=== PATIENT | male | born 1980 | race Caucasian/White ===

== ENCOUNTER 2016-11-07 00:01 | Emergency (ER) | payer OTHER ==
[~2016-11-07] VITALS: Ht 177.8 cm; Wt 102.0 kg
[2016-11-07 00:23] VITALS: TEMP 36.8; Ht 177.8 cm; Wt 102.0 kg
[2016-11-07] MEDS ORDERED: CYCL10TA6 PO (01:04)
[2016-11-07] MEDS ORDERED: PRED50TA PO (01:04)
[2016-11-07 01:11] VITALS: BP 153/97; PULSE 86; O2SAT 96
--- NOTE | 2016-11-07 06:08 | EMERGENCY ROOM VISIT NOTE ---
History First contact with patient: 00:37 Chief Complaint: SHOULDER PAIN Stated Complaint: RIGHT SHOULDER PAIN History of Present Illness The patient is a 36 year old male who presents to the Emergency Room with complaints of right shoulder pain for the past one day. The patient does not recall an injury or trauma. The patient has been drinking tonight and is obviously intoxicated. 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 He rates his discomfort a 7/10. Review of Systems More than 10 systems were reviewed and otherwise negative with the exception of history of present illness. Past Medical/Surgical History No chronic medical disease Family History No pertinent family history Social History Smoking Status: Current Every Day Smoker Alcohol Use: occasionally Marital Status: in relationship Housing Status: lives with significant other Occupation Status: employed Current/Historical Medications Scheduled Cyclobenzaprine Hcl (Flexeril), 10 MG PO TID Prednisone (Prednisone), 50 MG PO DAILY Allergies Coded Allergies: No Known Allergies (Unverified , 11/07/16) Physical Exam Vital Signs Date Time Temp Pulse Resp B/P (MAP) Pulse Ox O2 Delivery O2 Flow Rate FiO2 11/07/16 01:11 86 20 153/97 96 11/07/16 00:23 36.8 90 20 153/97 96 Room Air Pain Rating (0-10): 6.0 Physical Exam VITALS: Vitals are noted on the nurse's note and reviewed by myself. Vital signs stable. GENERAL: Well-developed, well-nourished, white male who appears intoxicated on examination. He is pleasant and cooperative. NECK: Supple without nuchal rigidity. No lymphadenopathy. No thyromegaly. Cervical spine is nontender. HEART: Regular rate and rhythm without murmurs gallops or rubs. LUNGS: Clear to auscultation bilaterally without wheezes, rales or rhonchi. No retractions or accessory muscle use. MUSCULOSKELETAL: Positive tenderness appreciated over the lateral deltoid and supraspinatus distribution of the right shoulder. Patient is unable to abduct secondary to discomfort. Neurovascular status is intact to the distal extremity. No clavicular tenderness. Negative empty can. NEURO: Patient was alert and oriented to person place and time. CN II through XII grossly intact. Medical Decision & Procedures ED Course Physical exam and history were performed. Nursing notes and EMR were reviewed. Patient appears to have right shoulder pain for the past one day. X-ray was obtained and reviewed by myself and my attending is showing no acute bony abnormality. 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 The patient may use over-the -counter analgesics. He will be given a prescription for prednisone and Flexeril. He is to follow with orthopedics for further care and management. He was otherwise invited back to the ER with any new, worsening, or concerning symptoms. The chart was completed utilizing [employer] Speech Voice Recognition Software. Grammatical errors, random word insertions, pronoun errors, and incomplete sentences are an occasional consequence of this system due to software limitations, ambient noise, and hardware issues. Any formal questions or concerns about the content, text, or information contained within the body of this dictation should be directly addressed to the provider for clarification. . Medical Decision Differential diagnosis includes, but is not limited to: Sprain, strain, fracture , dislocation, subluxation, contusion, tendinitis, rotator cuff injury, and others Impression Primary Impression: Right shoulder pain Departure Information Dispostion Home / Self-Care Condition GOOD Prescriptions Cyclobenzaprine Hcl (FLEXERIL) 10 Mg Tab 10 MG PO TID for 4 Days, #12 TAB Prov: Raffi Barlow PA-C 11/07/16 Prednisone (Prednisone) 50 Mg Tab 50 MG PO DAILY for 4 Days, #4 TAB Prov: Raffi Barlow PA-C 11/07/16 Referrals Pranay Scott D.O. Forms HOME CARE DOCUMENTATION FORM, Work Instructions, Additional Instructions: Patient was seen and evaluated today in the emergency department fo medical care. Return to work on 11/09/2016. IMPORTANT VISIT INFORMATION Patient Instructions My [facility] Additional Instructions You were seen and evaluated today on an emergency basis only. This is not a substitute for, or an effort to provide, complete comprehensive medical care. It is not possible to recognize and treat all injuries or illnesses in a single emergency department visit. For this reason it is recommended that you followup with Orthopedics, Dr. Scott's office, by telephone in the morning to arrange a follow-up visit next week. For baseline pain relief you may alternate ibuprofen and acetaminophen every 4 hours for pain control. Take 600 mg ibuprofen (Advil) and then 4 hours later take 1000 mg acetaminophen (Tylenol). Do not take more than 3000 mg acetaminophen in a single day. Take prednisone daily for the next 4 days Flexeril 1 tablet up to 3 times a day as needed for muscle spasms. No driving, working, or alcohol use with Flexeril. Wear your arm sling for comfort You are welcome to return to the emergency department anytime with new, worsening, or concerning symptoms. Work Instructions Additional Work Instructions: Patient was seen and evaluated today in the emergency department for medical care. Return to work on 11/09/2016.
--- NOTE | 2016-11-07 07:07 | DIAGNOSTIC IMAGING REPORT ---
RIGHT SHOULDER MIN 2 VIEWS ROUTINE CLINICAL HISTORY: pain Right COMPARISON: None. DISCUSSION: Moderate degenerative change right acromioclavicular joint. Small avulsion from the distal clavicle. This is well-corticated. Glenohumeral joint is unremarkable. There is no evidence for soft tissue swelling. IMPRESSION: Moderate degenerative change. No acute bony abnormality. Electronically signed by: Ryan Padron M.D. 11/07/2016 7:06 AM Dictated Date/Time: 11/07/2016 7:05 AM
== END 2016-11-07 01:12 | disposition home or self-care (01) ==
LOC: C.EDB 00:03 → C.EDC 01:12
DX: M25.511 Pain in right shoulder (principal); F17.210 Nicotine dependence, cigarettes, uncomplicated; F10.129 Alcohol abuse with intoxication, unspecified; Y90.9 Presence of alcohol in blood, level not specified

== ENCOUNTER → 2017-12-11 | Outpatient (CLI) | payer OTHER ==
[2017-12-11 13:45] LABS: BLOOD UREA NITROGEN 22 mg/dl (7-18); CALCIUM 8.5 mg/dl (8.5-10.1); CARBON DIOXIDE 27 mmol/L (21-32); CHOLESTEROL 156 mg/dl (0-200); GLUCOSE,FASTING 86 mg/dl (70-99); LDL CHOLESTEROL CALCULATED 79 mg/dl; POTASSIUM 3.9 mmol/L (3.5-5.1); SODIUM 140 mmol/L (136-145)
== END | disposition home or self-care (01) ==
LOC: C.LABPBG 07:36
PROVIDERS: ATTEND Physician Assistant
DX: Z00.00 Encounter for general adult medical examination without abnormal findings (principal)

== ENCOUNTER 2022-01-27 09:38 | Inpatient (IN) ==
[~2022-01-27 09:38] MED LIST: NALOXONE HCL 0.4 MG/1 ML VIAL/CARP ONE
[2022-01-27] MEDS ORDERED: SODIUM CHLORIDE 0.9% 1000ML 1,000 ML IV SCH (10:00)
--- NOTE | 2022-01-27 10:09 | Emergency Department Note ---
History of Present Illness General Chief complaint: Overdose (Accidental) Time Seen by Provider: 01/27/22 09:40 History of Present Illness 41-year-old male presents to the ED with a chief complaint of overdose. The patient presents to the hospital by ambulance. The patient, on arrival is unable to provide any information as he appears to be sedated. History surrounding the patient's arrival is as follows. EMS was called to a scene at a house where there was a 22-year-old male who was in cardiac arrest. EMS found this patient in a nearby room unresponsive with snoring respirations. EMS originally contacted me for refusal as they had given the patient nasal Narcan as well as IV Narcan and he awoke. He denied anything and refused care initially. He becomes somnolent during the investigation and EMS subsequently brought him in for evaluation. No additional information was provided by EMS. The patient is currently not able to converse but does respond to painful stimuli. He is breathing adequately. Home Medications Medication Instructions Recorded Confirmed Type Unobtainable 01/27/22 01/27/22 History Allergies Allergy/AdvReac Type Severity Reaction Status Date / Time No Known Allergies Allergy Unverified 01/27/22 10:05 Past Med/Surg History Social History Smoking Status: Unknown if ever smoked Review of Systems Unobtainable due to cognitive status Physical Exam Vital Signs Vital Signs - 24 hr 01/27/22 09:59 01/27/22 10:09 01/27/22 10:30 Temperature 35 C L Temperature Source Rectal Pulse Rate 76 Pulse Rate [Finger] 75 Pulse Rate from SpO2 Sensor Respiratory Rate 18 14 Respiratory Effort / Characteristics Respiratory Depth Respiratory Pattern Blood Pressure 140/91 Blood Pressure [Right Arm] 141/90 H Blood Pressure Mean 107 Blood Pressure Mean [Right Arm] 107 Blood Pressure Position [Right Arm] Pulse Oximetry 94 94 94 Oxygen Delivery Method Room Air Room Air Oxygen Flow Rate Sepsis Recent Fever Within 48 Hours No Sepsis New/Unexplained Change in Mental Status No Sepsis Action Taken by Nursing No Action Required 01/27/22 10:50 01/27/22 09:42 01/27/22 09:43 Temperature Temperature Source Pulse Rate 75 Pulse Rate [Finger] 73 Pulse Rate from SpO2 Sensor 75 Respiratory Rate 12 14 Respiratory Effort / Characteristics Respiratory Depth Respiratory Pattern Blood Pressure 140/91 Blood Pressure [Right Arm] 139/87 Blood Pressure Mean 107 Blood Pressure Mean [Right Arm] 104 Blood Pressure Position [Right Arm] Pulse Oximetry 92 94 Oxygen Delivery Method Room Air Oxygen Flow Rate Sepsis Recent Fever Within 48 Hours Sepsis New/Unexplained Change in Mental Status Sepsis Action Taken by Nursing 01/27/22 09:45 01/27/22 09:45 01/27/22 10:00 Temperature Temperature Source Pulse Rate 76 72 Pulse Rate [Finger] Pulse Rate from SpO2 Sensor Respiratory Rate 15 14 Respiratory Effort / Characteristics Respiratory Depth Respiratory Pattern Blood Pressure 149/95 H Blood Pressure [Right Arm] Blood Pressure Mean 113 Blood Pressure Mean [Right Arm] Blood Pressure Position [Right Arm] Pulse Oximetry Oxygen Delivery Method Oxygen Flow Rate Sepsis Recent Fever Within 48 Hours Sepsis New/Unexplained Change in Mental Status Sepsis Action Taken by Nursing 01/27/22 10:15 01/27/22 10:15 01/27/22 10:17 Temperature Temperature Source Pulse Rate 73 72 Pulse Rate [Finger] Pulse Rate from SpO2 Sensor 72 72 Respiratory Rate 16 12 Respiratory Effort / Characteristics Respiratory Depth Respiratory Pattern Blood Pressure 138/86 Blood Pressure [Right Arm] Blood Pressure Mean 103 Blood Pressure Mean [Right Arm] Blood Pressure Position [Right Arm] Pulse Oximetry 94 94 Oxygen Delivery Method Oxygen Flow Rate Sepsis Recent Fever Within 48 Hours Sepsis New/Unexplained Change in Mental Status Sepsis Action Taken by Nursing 01/27/22 10:28 01/27/22 10:30 01/27/22 10:30 Temperature Temperature Source Pulse Rate 77 Pulse Rate [Finger] Pulse Rate from SpO2 Sensor 75 Respiratory Rate 13 Respiratory Effort / Characteristics Respiratory Depth Respiratory Pattern Blood Pressure 139/95 141/90 H Blood Pressure [Right Arm] Blood Pressure Mean 109 107 Blood Pressure Mean [Right Arm] Blood Pressure Position [Right Arm] Pulse Oximetry 94 Oxygen Delivery Method Oxygen Flow Rate Sepsis Recent Fever Within 48 Hours Sepsis New/Unexplained Change in Mental Status Sepsis Action Taken by Nursing 01/27/22 10:45 01/27/22 10:45 01/27/22 11:00 Temperature Temperature Source Pulse Rate 74 Pulse Rate [Finger] Pulse Rate from SpO2 Sensor 76 Respiratory Rate 12 Respiratory Effort / Characteristics Respiratory Depth Respiratory Pattern Blood Pressure 139/87 145/87 H Blood Pressure [Right Arm] Blood Pressure Mean 104 106 Blood Pressure Mean [Right Arm] Blood Pressure Position [Right Arm] Pulse Oximetry 95 Oxygen Delivery Method Oxygen Flow Rate Sepsis Recent Fever Within 48 Hours Sepsis New/Unexplained Change in Mental Status Sepsis Action Taken by Nursing 01/27/22 11:00 01/27/22 11:15 01/27/22 11:15 Temperature Temperature Source Pulse Rate 73 73 Pulse Rate [Finger] Pulse Rate from SpO2 Sensor 73 72 Respiratory Rate 10 L 20 Respiratory Effort / Characteristics Respiratory Depth Respiratory Pattern Blood Pressure 144/86 H 144/86 H Blood Pressure [Right Arm] Blood Pressure Mean 105 105 Blood Pressure Mean [Right Arm] Blood Pressure Position [Right Arm] Pulse Oximetry 92 94 Oxygen Delivery Method Oxygen Flow Rate Sepsis Recent Fever Within 48 Hours Sepsis New/Unexplained Change in Mental Status Sepsis Action Taken by Nursing 01/27/22 11:30 01/27/22 11:30 01/27/22 11:45 Temperature Temperature Source Pulse Rate 66 Pulse Rate [Finger] Pulse Rate from SpO2 Sensor 67 Respiratory Rate 10 L Respiratory Effort / Characteristics Respiratory Depth Respiratory Pattern Blood Pressure 147/99 H 138/90 Blood Pressure [Right Arm] Blood Pressure Mean 115 106 Blood Pressure Mean [Right Arm] Blood Pressure Position [Right Arm] Pulse Oximetry 94 Oxygen Delivery Method Oxygen Flow Rate Sepsis Recent Fever Within 48 Hours Sepsis New/Unexplained Change in Mental Status Sepsis Action Taken by Nursing 01/27/22 11:45 01/27/22 13:03 01/27/22 13:03 Temperature Temperature Source Pulse Rate 70 Pulse Rate [Finger] 73 Pulse Rate from SpO2 Sensor 70 Respiratory Rate 11 L 26 H Respiratory Effort / Characteristics Respiratory Depth Respiratory Pattern Blood Pressure Blood Pressure [Right Arm] 138/87 Blood Pressure Mean Blood Pressure Mean [Right Arm] 104 Blood Pressure Position [Right Arm] Lying Pulse Oximetry 94 83 L 99 Oxygen Delivery Method Room Air Nasal Cannula Oxygen Flow Rate 5 Sepsis Recent Fever Within 48 Hours Sepsis New/Unexplained Change in Mental Status Sepsis Action Taken by Nursing 01/27/22 14:00 Temperature Temperature Source Pulse Rate Pulse Rate [Finger] 73 Pulse Rate from SpO2 Sensor Respiratory Rate 26 H Respiratory Effort / Characteristics Grunting Respiratory Depth Normal Respiratory Pattern Regular Blood Pressure Blood Pressure [Right Arm] 148/91 H Blood Pressure Mean Blood Pressure Mean [Right Arm] 110 Blood Pressure Position [Right Arm] Lying Pulse Oximetry 99 Oxygen Delivery Method Nasal Cannula Oxygen Flow Rate 5 Sepsis Recent Fever Within 48 Hours Sepsis New/Unexplained Change in Mental Status Sepsis Action Taken by Nursing CONSTITUTIONAL/VITAL SIGNS: Reviewed / noted above. GENERAL: Non-toxic in appearance. INTEGUMENTARY: Warm, dry, and [place]. Some track zhong noted on the patient's arms. HEAD: Normocephalic. EYES: without scleral icterus or trauma. The pupils are small. ENT/OROPHARYNX: clear and moist. No obvious trauma. LYMPHADENOPATHY/NECK: Is supple without lymphadenopathy or meningismus. RESPIRATORY: Clear to auscultation bilaterally. No increased work of breathing. CARDIOVASCULAR: Regular rate and rhythm. GI/ABDOMEN: Soft EXTREMITIES: Warm and well perfused. NEUROLOGICAL: Nonresponsive to verbal stimulus. He does respond to painful stimuli with movement of extremities and moaning. Does not follow commands. MUSCULOSKELETAL: Normally developed with good muscle tone. TRIAGE NURSING DOCUMENTATION REVIEWED. Course Administered Medications Discontinued Medications Sodium Chloride (Nss 1000ml) 1,000 mls @ 999 mls/hr IV .Q1H1M JUSTIN Stop: 01/27/22 11:00 Last Infusion: 01/27/22 11:06 Dose: 0 mls/hr Documented By: Admin: 01/27/22 10:13 Dose: 999 mls/hr Documented By: SONU Naloxone HCl (Naloxone Hcl 0.4 Mg/1 Ml Vial/Carp) Confirm Administered Dose 1.2 mg .ROUTE .STK-MED ONE Stop: 01/27/22 09:26 Last Admin: 01/27/22 14:28 Dose: Not Given Documented By: SIMRAN Naloxone HCl (Naloxone Hcl 0.4 Mg/1 Ml Vial/Carp) 0.4 mg IV NOW STA Stop: 01/27/22 11:10 Last Admin: 01/27/22 11:12 Dose: 0.4 mg Documented By: SIMRAN Medical Decision Making Differential Diagnosis Differential includes overdose on Tylenol/aspirin/ethanol, ethylene glycol, methanol, prescribed medications, not prescribe medications/street drugs, metabolic process, traumatic process. Medical Records Attestation: I reviewed the patient's medical records. Home Medications Current Medication List: was personally reviewed by me Laboratory Data Attestation: I reviewed the patient's lab results. Result diagrams: 01/27/22 09:40 01/27/22 09:40 Lab Results 01/27/22 01/27/22 01/27/22 Range/Units 09:40 09:40 09:40 WBC RBC Hgb Hct MCV MCH MCHC RDW Std Deviation RDW Coeff of Casey Plt Count MPV Immature Gran % (Auto) Neut % (Auto) Lymph % (Auto) [place] % (Auto) Eos % (Auto) Baso % (Auto) Neut # (Auto) Lymph # (Auto) [place] # (Auto) Eos # (Auto) Baso # (Auto) Immature Gran # (Auto) Absolute Nucleated RBC Nucleated RBC % (auto) Neutrophils % (Manual) Band Neutrophils % Lymphocytes % (Manual) Prolymphocyte % Reactive Lymphs % (Man) Monocytes % (Manual) Eosinophils % (Manual) Basophils % (Manual) Metamyelocytes % (Man) Myelocytes % (Man) Promyelocytes % (Man) Blast Cells % (Manual) Plasma Cell % (Manual) Other Cells % Nucleated RBC % Neutrophils # (Manual) Band Neutrophils # Total Absolute Neuts Lymphocytes # (Manual) Prolymphocyte # Reactive Lymphs # Total Abs Lymphocytes Monocytes # (Manual) Eosinophils # (Manual) Basophils # (Manual) Metamyelocytes # (Man) Myelocytes # (Manual) Promyelocytes # (Man) Blast Cells # (Man) Plasma Cell # (Manual) Other Cells # Nucleated RBCs # (Man) Hypersegmented Neuts Hyposegmented Neuts Hypogranular Neuts Large Granular Lymphs # Lrg Granular Lymphs Hairy Cells Smudge Cells Toxic Granulation Toxic Vacuolation Dohle Bodies Ariel Rods Platelet Estimate Hypogranular Platelets Clumped Platelets Giant Platelets Platelet Satelliting RBC Morphology Polychromasia Hypochromasia Poikilocytosis Basophilic Stippling Anisocytosis Microcytosis Macrocytosis Spherocytes Pappenheimer Bodies Sickle Cells Target Cells Tear Drop Cells Ovalocytes Stomatocytes [place] Bodies Echinocytes Acanthocytes (Spur) Rouleaux RBC Agglutinates Schistocytes Sezary Cell Sodium 140 (136-145) mmol/L Potassium 4.6 (3.5-5.1) mmol/L Chloride 105 (98-107) mmol/L Carbon Dioxide 27 (21-32) mmol/L Anion Gap 8 (3-11) BUN 24 H (6-23) mg/dl Creatinine 1.17 (0.6-1.4) mg/dl Est Cr Clr Drug Dosing 93.0 ml/min Est GFR ( Amer) 88.6 ml/min Est GFR (Non-Af Amer) 76.4 ml/min BUN/Creatinine Ratio 20.5 H (10-20) Glucose 116 H (70-99(Fasting)) mg/dl Calcium 9.0 (8.5-10.1) mg/dl Magnesium 2.1 (1.7-2.4) mg/dl Total Bilirubin 0.3 (0.2-1.0) mg/dl AST 28 (13-39) U/L ALT 26 (7-52) U/L Alkaline Phosphatase 53 (34-104) U/L Troponin I High Sens 23.9 H (0-20) pg/ml Total Protein 7.7 (6.0-8.3) gm/dl Albumin 4.0 (3.4-5.0) gm/dl Globulin 3.7 (2.5-4.0) gm/dl Albumin/Globulin Ratio 1.1 (0.9-2) Salicylates < 3.0 L (3.0-30) mg/dl Urine Opiates Screen (Neg) Ur Methadone, Qual (Neg) Acetaminophen < 3 L (10-30) ug/ml Urine Barbiturates (Neg) Ur Phencyclidine (PCP) (Neg) U Amphetamin/Meth Scrn (Neg) MDMA (Ecstasy) Screen (Neg) U Benzodiazepines Scrn (Neg) Ur Cocaine Metabolite (Neg) U Marijuana (THC) Screen (Neg) Ethyl Alcohol mg/dL < 10.0 (<10.0) mg/dl Blood Parasites ID 01/27/22 01/27/22 01/27/22 Range/Units 09:40 09:40 09:40 WBC Cancelled 14.99 H RBC Cancelled 5.02 Hgb Cancelled 15.4 Hct Cancelled 45.3 MCV Cancelled 90.2 MCH Cancelled 30.7 MCHC Cancelled 34.0 RDW Std Deviation Cancelled 43.5 RDW Coeff of Casey Cancelled 13.2 Plt Count Cancelled 243 MPV Cancelled 10.9 Immature Gran % (Auto) Cancelled 0.5 Neut % (Auto) Cancelled 77.4 Lymph % (Auto) Cancelled 9.1 [place] % (Auto) Cancelled 12.4 Eos % (Auto) Cancelled 0.3 Baso % (Auto) Cancelled 0.3 Neut # (Auto) Cancelled 11.59 H Lymph # (Auto) Cancelled 1.36 [place] # (Auto) Cancelled 1.86 H Eos # (Auto) Cancelled 0.05 Baso # (Auto) Cancelled 0.05 Immature Gran # (Auto) Cancelled 0.08 H Absolute Nucleated RBC Cancelled Nucleated RBC % (auto) Cancelled Neutrophils % (Manual) Cancelled Band Neutrophils % Cancelled Lymphocytes % (Manual) Cancelled Prolymphocyte % Cancelled Reactive Lymphs % (Man) Cancelled Monocytes % (Manual) Cancelled Eosinophils % (Manual) Cancelled Basophils % (Manual) Cancelled Metamyelocytes % (Man) Cancelled Myelocytes % (Man) Cancelled Promyelocytes % (Man) Cancelled Blast Cells % (Manual) Cancelled Plasma Cell % (Manual) Cancelled Other Cells % Cancelled Nucleated RBC % Cancelled Neutrophils # (Manual) Cancelled Band Neutrophils # Cancelled Total Absolute Neuts Cancelled Lymphocytes # (Manual) Cancelled Prolymphocyte # Cancelled Reactive Lymphs # Cancelled Total Abs Lymphocytes Cancelled Monocytes # (Manual) Cancelled Eosinophils # (Manual) Cancelled Basophils # (Manual) Cancelled Metamyelocytes # (Man) Cancelled Myelocytes # (Manual) Cancelled Promyelocytes # (Man) Cancelled Blast Cells # (Man) Cancelled Plasma Cell # (Manual) Cancelled Other Cells # Cancelled Nucleated RBCs # (Man) Cancelled Hypersegmented Neuts Cancelled Hyposegmented Neuts Cancelled Hypogranular Neuts Cancelled Large Granular Lymphs Cancelled # Lrg Granular Lymphs Cancelled Hairy Cells Cancelled Smudge Cells Cancelled Toxic Granulation Cancelled Toxic Vacuolation Cancelled Dohle Bodies Cancelled Ariel Rods Cancelled Platelet Estimate Cancelled Hypogranular Platelets Cancelled Clumped Platelets Cancelled Giant Platelets Cancelled Platelet Satelliting Cancelled RBC Morphology Cancelled Polychromasia Cancelled Hypochromasia Cancelled Poikilocytosis Cancelled Basophilic Stippling Cancelled Anisocytosis Cancelled Microcytosis Cancelled Macrocytosis Cancelled Spherocytes Cancelled Pappenheimer Bodies Cancelled Sickle Cells Cancelled Target Cells Cancelled Tear Drop Cells Cancelled Ovalocytes Cancelled Stomatocytes Cancelled Weiss[place] Bodies Cancelled Echinocytes Cancelled Acanthocytes (Spur) Cancelled Rouleaux Cancelled RBC Agglutinates Cancelled Schistocytes Cancelled Sezary Cell Cancelled Sodium (136-145) mmol/L Potassium (3.5-5.1) mmol/L Chloride (98-107) mmol/L Carbon Dioxide (21-32) mmol/L Anion Gap (3-11) BUN (6-23) mg/dl Creatinine (0.6-1.4) mg/dl Est Cr Clr Drug Dosing ml/min Est GFR ( Amer) ml/min Est GFR (Non-Af Amer) ml/min BUN/Creatinine Ratio (10-20) Glucose (70-99(Fasting)) mg/dl Calcium (8.5-10.1) mg/dl Magnesium (1.7-2.4) mg/dl Total Bilirubin (0.2-1.0) mg/dl AST (13-39) U/L ALT (7-52) U/L Alkaline Phosphatase (34-104) U/L Troponin I High Sens (0-20) pg/ml Total Protein (6.0-8.3) gm/dl Albumin (3.4-5.0) gm/dl Globulin (2.5-4.0) gm/dl Albumin/Globulin Ratio (0.9-2) Salicylates (3.0-30) mg/dl Urine Opiates Screen Neg (Neg) Ur Methadone, Qual Neg (Neg) Acetaminophen (10-30) ug/ml Urine Barbiturates Neg (Neg) Ur Phencyclidine (PCP) Neg (Neg) U Amphetamin/Meth Scrn Pos H (Neg) MDMA (Ecstasy) Screen Pos H (Neg) U Benzodiazepines Scrn Neg (Neg) Ur Cocaine Metabolite Pos H (Neg) U Marijuana (THC) Screen Pos H (Neg) Ethyl Alcohol mg/dL (<10.0) mg/dl Blood Parasites ID Cancelled Imaging Data Radiologist's Impression: Chest X-Ray 01/27/22 09:54 XR chest 1V portable HISTORY: 41 years-old Male od acute shortness of breath with drug overdose COMPARISON: Shoulder radiographs 11/04/2013 TECHNIQUE: Portable AP view of the chest FINDINGS: Lungs are hypoinflated with bronchovascular crowding. Cardiac silhouette is upper limits of normal in size. Mild subsegmental bibasilar densities. No pneumothorax, pleural effusion or overt pulmonary edema. Bones of the chest appear grossly intact. IMPRESSION: Hypoinflation with mild bibasilar opacities suggestive of atelectasis. ACT 112: Negative or not required by law. The above report was generated using voice recognition software. It may contain grammatical, syntax or spelling errors. Electronically signed by: Kenny Metzger M.D. 01/27/2022 10:[address] 01/27/22 09:56 CT head/brain wo con CLINICAL HISTORY: 41 years-old Male with od. Acute drug overdose with altered mental status TECHNIQUE: Multiple axial CT images of the head were obtained without contrast. A dose lowering technique was utilized adhering to the principles of ALARA. CT DOSE: 614.27 mGy.cm COMPARISON: None. FINDINGS: No acute intracranial hemorrhage, midline shift, intracranial mass, hydrocephalus, territorial ischemia or abnormal extra-axial collection. Prominent perivascular space within the inferior right lentiform nucleus/anterior commissure. The calvarium is intact. Age-indeterminate left-sided nasal bone fracture, likely chronic. Note is made of disconjugate gaze. The paranasal sinuses, mastoid air cells, and middle ear cavities are clear. IMPRESSION: 1. No acute intracranial abnormality. 2. Likely chronic left-sided nasal bone fracture. ACT 112: Negative or not required by law. The above report was generated using voice recognition software. It may contain grammatical, syntax or spelling errors. Electronically signed by: Kenny Metzger M.D. 01/27/2022 10:31 AM ECG Data Attestation: I personally reviewed and interpreted this ECG as follows: Additional Comments: 12 Lead EKG: Per my interpretation shows a normal sinus rhythm at a rate of 77. No ST elevation. No PVCs. Normal QTC. MDM Narrative 41-year-old male with likely overdose of narcotics. Patient had originally refused care after Narcan. He had snoring respirations and was unresponsive and after nasal and IV Narcan he awoke. He subsequently became less responsive and was transported to the ED for further evaluation and care. Unable to provide any history. When he was awake with EMS, he did not admit to any drugs. No additional information was available from EMS. There was a 22-year-old male on the same location that was in cardiac arrest, which was the original call for EMS to the site. The patient's EKG shows a sinus rhythm without ischemic fajardo ges. CT scan of brain did not show acute process. The white blood cell count was 14.9. Likely a stress response related to his episode. His complete metabolic panel was unremarkable. Salicylates and Tylenol were negative. A chest x-ray was negative for acute disease. Tox screen is positive for methamphetamines, MDMA as well as cocaine and marijuana. Alcohol was negative. Tylenol and salicylates are negative. The patient was monitored here in the ED. He was given 1 dose of Narcan early on for some somnolence and hypoxia with saturations around 86%. The patient was monitored here for about 5 hours now. He is now arousable to verbal stimulus. He is answering questions appropriatel y. He does fall asleep easily still but feels like he would like to go home. He states that we can call his dad. He has been maintaining normal vital signs. He is felt to be stable for discharge home and outpatient follow-up. He declined acknowledgment of using any drugs although he states that he was an IV drug abuser in the past. He states that he did not use anything recently despite being told that his drug screen shows abnormalities. The patient denies attempting to harm himself or being suicidal. Impression & Plan Polysubstance overdose, Cocaine intoxication, Drug overdose Discharge Plan Visit Data Chief Complaint: Overdose (Accidental) ED Provider: Yousif Curiel Discharge Problem: Polysubstance overdose, Cocaine intoxication, Drug overdose Patient Disposition: Home - Self-Care Discharge Instructions Activity Restrictions/Additional Instructions: Your evaluated today to emergency department for a polysubstance overdose with positive findings on your drug screen with regards to cocaine, methamphetamines, MDMA and marijuana. Follow-up with your doctor for further care and evaluation in 1-2 days if symptoms persist. Return to the emergency department for worsening or new symptoms or any concerns. You have been examined and treated today on an emergency basis only. This is not a substitute for, or an effort to provide, complete comprehensive medical care. It is impossible to recognize and treat all injuries or illnesses in a single emergency department visit. It is therefore important that you follow up closely with your doctor. Call as soon as possible for an appointment. Forms Stand Alone Forms: My [facility], [facility] Emergency Department, Important Visit Information Prescriptions Prescriptions: No Action Unobtainable Referrals Referrals: PCP,NO [Primary Care Provider] -
--- NOTE | 2022-01-27 10:33 | CT Scan Report ---
CT head/brain wo con CLINICAL HISTORY: 41 years-old Male with od. Acute drug overdose with altered mental status TECHNIQUE: Multiple axial CT images of the head were obtained without contrast. A dose lowering tech nique was utilized adhering to the principles of ALARA. CT DOSE: 614.27 mGy.cm COMPARISON: None. FINDINGS: No acute intracranial hemorrhage, midline shift, intracranial mass, hydrocephalus, territorial ischem ia or abnormal extra-axial collection. Prominent perivascular space within the inferior right lentifo rm nucleus/anterior commissure. The calvarium is intact. Age-indeterminate left-sided nasal bone fracture, likely chronic. Note is ma de of disconjugate gaze. The paranasal sinuses, mastoid air cells, and middle ear cavities are clear. IMPRESSION: 1. No acute intracranial abnormality. 2. Likely chronic left-sided nasal bone fracture. ACT 112: Negative or not required by law. The above report was generated using voice recognition software. It may contain grammatical, syntax o r spelling errors. Electronically signed by: Kenny Metzger M.D. 01/27/2022 10:31 AM
--- NOTE | 2022-01-27 10:34 | XRay Report ---
XR chest 1V portable HISTORY: 41 years-old Male od acute shortness of breath with drug overdose COMPARISON: Shoulder radiographs 11/04/2013 TECHNIQUE: Portable AP view of the chest FINDINGS: Lungs are hypoinflated with bronchovascular crowding. Cardiac silhouette is upper limits of normal in size. Mild subsegmental bibasilar densities. No pneumothorax, pleural effusion or overt pulmonary ed gustabo. Bones of the chest appear grossly intact. IMPRESSION: Hypoinflation with mild bibasilar opacities suggestive of atelectasis. ACT 112: Negative or not required by law. The above report was generated using voice recognition software. It may contain grammatical, syntax o r spelling errors. Electronically signed by: Kenny Metzger M.D. 01/27/2022 10:32 AM
[2022-01-27 10:40] LABS: Basophils # (auto) 0.05 K/uL (0-0.2); Basophils % (auto) 0.3 %; Eosinophils # (auto) 0.05 K/uL (0-0.50); Eosinophils % (auto) 0.3 %; Hematocrit (blood only) 45.3 % (40.1-51.0); Hemoglobin 15.4 g/dl (14.0-18.0); Immature Granulocytes # (auto) 0.08 K/uL (0.00-0.02); Immature Granulocytes % (auto) 0.5 %; Lymphocytes # (auto) 1.36 K/uL (1.2-3.4); Lymphocytes % (auto) 9.1 %; Mean Corpuscular Hemoglobin 30.7 pg (25.0-34.0); Mean Corpuscular Volume 90.2 fL (80.0-100.0); Mean Platelet Volume 10.9 fL (9.4-12.4); Monocytes # (auto) 1.86 K/uL (0.24-0.82); Monocytes % (auto) 12.4 %; Neutrophils # (auto) 11.59 K/uL (1.4-6.5); Neutrophils % (auto) 77.4 %; Platelet Count 243 K/uL (130-400); RDW Coefficient of Variation 13.2 % (11.5-14.5); RDW Standard Deviation 43.5 fL (36.4-46.3); Red Blood Count 5.02 M/uL (4.63-6.08); White Blood Count 14.99 K/ul (4.8-10.8)
[2022-01-27 10:52] LABS: Troponin I High Sensitivity 23.9 pg/ml (0-20)
[2022-01-27 10:54] LABS: Acetaminophen < 3 ug/ml (10-30); Salicylate < 3.0 mg/dl (3.0-30)
[2022-01-27 10:56] LABS: Albumin Globulin Ratio 1.1 (0.9-2); BUN Creatinine Ratio 20.5 (10-20); Bilirubin,Total 0.3 mg/dl (0.2-1.0); Est GFR (African American) 88.6 ml/min; Est GFR (Non-African American) 76.4 ml/min; Globulin 3.7 gm/dl (2.5-4.0); Magnesium 2.1 mg/dl (1.7-2.4); Potassium 4.6 mmol/L (3.5-5.1); Total Protein 7.7 gm/dl (6.0-8.3)
[2022-01-27] MEDS ORDERED: NALOXONE HCL 0.4 MG/1 ML VIAL/CARP IV STA ×3 (11:09→18:34)
[2022-01-27 11:53] LABS: Amphetamines+Metham, Urine Pos (Neg); Barbiturates, Urine Neg (Neg); Benzodiazepine, Urine Neg (Neg); Cocaine, Urine Pos (Neg); MDMA (Ecstacy), Urine Pos (Neg); Methadone, Urine Neg (Neg); Opiate, Urine Neg (Neg); Phencyclidine, Urine Neg (Neg)
--- NOTE | 2022-01-27 15:39 | Emergency Department Note ---
ED Visit Note I assumed care at the change of shift. The patient was too groggy and sleepy to be discharged. He was requiring nasal cannula O2. He had presented with what was presumed to be a drug overdose. Patient was in the ED for over 6 hours. He remained somnolent. The nursing staff came to give me an update. The patient had become hypoxic once again and was requiring O2 supplementation. Repeat chest x-ray was done, there was no pneumonia, no CHF. Patient was given IV Narcan 0.4 mg and did become more alert and awake, his breathing improved. The patient has received several doses of Narcan now. He appears to be suffering from a drug overdose. Although, opiates did not turn positive on the drug screen, I suspect some type of synthetic opiate as part of his overdose. The patient is in need of a hospital stay. He is hypoxic and has required multiple doses of IV Narcan. He is not safe for discharge. I did speak with case management, the on-call hospitalist was consulted. .
--- NOTE | 2022-01-27 15:59 | XRay Report ---
XR chest 1V portable HISTORY: 41 years-old Male sob, hypoxia acute shortness of breath COMPARISON: Chest radiograph SAME day at 10:06 AM TECHNIQUE: AP view of the chest FINDINGS: Cardiomediastinal and hilar silhouettes are within normal limits. No pneumothorax, pleural effusion o r overt pulmonary edema. There is improved aeration of the lungs. Mild linear subsegmental bibasilar densities. Degenerative changes of the shoulders. IMPRESSION: There is improved aeration of the lungs with mild bibasilar densities suggestive of atele ctasis. ACT 112: Negative or not required by law. The above report was generated using voice recognition software. It may contain grammatical, syntax o r spelling errors. Electronically signed by: Kenny Metzger M.D. 01/27/2022 3:57 PM
[2022-01-27] MEDS ORDERED: STAT IV Infusion **Titration per Protocol STA (17:39)
[2022-01-27] MEDS ORDERED: NALOXONE HCL 5 MG in 0.9 % SODIUM CHLORIDE 87.5 ML IV SCH (17:45)
[2022-01-27] MEDS ORDERED: NALOXONE HCL 0.4 MG/1 ML VIAL/CARP IV PRN (17:56)
--- NOTE | 2022-01-27 18:40 | History & Physical Report ---
Date of Service January 27, 2022 Assessment & Plan (1) Polysubstance overdose: Plan: Patient admitted to ICU for drug overdose. Patient has been responding to IV narcan. UDS negative for opiates, however patient may hve taken synthetic narcotics. UDS: positive for amphetamines, marijuana, cocaine, ecstasy. Patient will be closely monitored as he reuires frequent IV narcan. History of Present Illness Chief Complaint: accidental overdose Primary Care Provider: NO PCP 41 yo male comes in with what appears to be accidental overdose. Patient is unable to provide medical history. history is obtained from chart review and verbal discussion with ER provider. Patient was brought to the hospital by EMS. He was sedated. EMS was called to the scene as there was a 22 yo in cardiac arrest. EMS staff found this 41 yo male unresponsive and brought him to the ER. Prior to arrival, he wa treated with IV narcan and woke up. During interrogation he was found to be somnolent. Allergies Allergy/AdvReac Type Severity Reaction Status Date / Time No Known Allergies Allergy Unverified 01/27/22 10:05 Home Medications Medication Instructions Recorded Confirmed Type Unobtainable 01/27/22 01/27/22 History Past Med/Surg History Social History Smoking Status: Current some day smoker Do You Dip or Chew Tobacco: No; Preferred Language: Kinyarwanda Communication Ability: Effective Magazine Feeder Required: No Beliefs That Will Affect Care: None Current Living Situation: Other Current Living Situation Comment: grandmother Other Information That Helps Us Care for You: No Feels Safe at Home: Yes Safety Concerns: Feels Safe At This Time Assistive Devices: None Review of Systems Review of Systems: Unobtainable due to cognitive status Physical Exam Constitutional: + intoxicated appearing and + altered mental status (somnolent, unresponsive to painful stimuli) Eyes: PERRL, conjunctivae normal, anicteric sclerae ENMT: external ear and nose normal, oropharynx normal Neck: trachea midline, no thyromegaly Respiratory: normal respiratory effort, lungs clear to auscultation Cardiovascular: RRR, no murmur, no edema Gastrointestinal (Abdomen): normal bowel sounds, soft, nontender, no hepatosplenomegaly Musculoskeletal: unable to assess due to mental status Skin: no rashes, warm and dry Neurologic: somnolent Psychiatric: somnolent, not responsive to painful stimuli Lymphatic: no cervical or axillary lymphadenopathy Results & Data Results & Data ([facility]) Vital Signs (Past 12 Hours) Vital Signs Temp Pulse Pulse Resp BP BP Pulse Ox 01/27/22 18:00 81 18 01/27/22 18:00 144/95 H 01/27/22 17:30 70 16 01/27/22 17:30 152/88 H 01/27/22 17:00 77 12 96 01/27/22 17:00 147/95 H 01/27/22 16:30 68 12 97 01/27/22 16:30 156/93 H 01/27/22 16:00 66 14 01/27/22 16:00 141/94 H 01/27/22 15:30 72 16 95 01/27/22 15:30 152/91 H 01/27/22 15:00 77 14 88 L 01/27/22 15:00 153/99 H 01/27/22 15:44 84 L 01/27/22 14:00 73 26 H 148/91 H 99 01/27/22 13:03 99 01/27/22 13:03 73 26 H 138/87 83 L 01/27/22 11:45 70 11 L 94 01/27/22 11:45 138/90 01/27/22 11:30 66 10 L 94 01/27/22 11:30 147/99 H 01/27/22 11:15 144/86 H 01/27/22 11:15 73 20 144/86 H 94 01/27/22 11:00 73 10 L 92 01/27/22 11:00 145/87 H 01/27/22 10:45 74 12 95 01/27/22 10:45 139/87 01/27/22 10:30 77 13 94 01/27/22 10:30 141/90 H 01/27/22 10:28 139/95 01/27/22 10:17 72 12 94 01/27/22 10:15 73 16 94 01/27/22 10:15 138/86 01/27/22 10:00 72 14 01/27/22 09:45 76 15 01/27/22 09:45 149/95 H 01/27/22 09:43 75 14 94 01/27/22 09:42 140/91 09/24/22 10:50 73 12 139/87 92 01/27/22 10:30 75 14 141/90 H 94 01/27/22 10:09 94 01/27/22 09:59 35 C L 76 18 140/91 94 O2 Del Method O2 Flow Rate 01/27/22 18:00 01/27/22 18:00 01/27/22 17:30 01/27/22 17:30 01/27/22 17:00 01/27/22 17:00 01/27/22 16:30 01/27/22 16:30 01/27/22 16:00 01/27/22 16:00 01/27/22 15:30 01/27/22 15:30 01/27/22 15:00 01/27/22 15:00 01/27/22 15:44 Oxymask 0 01/27/22 14:00 Nasal Cannula 5 01/27/22 13:03 Nasal Cannula 5 01/27/22 13:03 Room Air 01/27/22 11:45 01/27/22 11:45 01/27/22 11:30 01/27/22 11:30 01/27/22 11:15 01/27/22 11:15 01/27/22 11:00 01/27/22 11:00 01/27/22 10:45 01/27/22 10:45 01/27/22 10:30 01/27/22 10:30 01/27/22 10:28 01/27/22 10:17 01/27/22 10:15 01/27/22 10:15 01/27/22 10:00 01/27/22 09:45 01/27/22 09:45 01/27/22 09:43 01/27/22 09:42 01/27/22 10:50 Room Air 01/27/22 10:30 Room Air 01/27/22 10:09 Room Air 01/27/22 09:59 Critical Care Time Critical Care Time: Yes Total Critical Care Time: 35 PG Care Time/CCT Total # of Minutes Spent Total Time Spent with Patient: Total time spent is greater than 50% in coordination of care (as documented) at patient's floor/unit and/or counseling patient: Critical Care Time: Yes Total Critical Care Time: 35 Coding Level of Care Code 99139 Initial Inpt Care Lvl 3 (25 - SIGNIFICANT, SEPARATELY IDENTIFIABLE ) Diagnoses Polysubstance overdose T50.901A Additional Codes Critical Care Time - Critical Care Time: Yes ([id number])
[2022-01-27] MEDS: SODIUM CHLORIDE 0.9% 1000ML 1,000 ML IV SCH (20:00)
--- NOTE | 2022-01-27 20:58 | Critical Care Consultation ---
Date of Consultation January 27, 2022 Assessment & Plan (1) Polysubstance overdose: [id number] male presents to the ICU following what appears to be an unintentional drug abuse. UDS positive for polysubstance. Patient responsive to Narcan but requiring multiple doses and admitted to ICU for close monitoring as he was previously experiencing respiratory depression. Neuro - Drug overdosepatient found unresponsive unresponsive to Narcan. UDS positive for polysubstance. Required multiple doses of Narcan in the ED -CT head negative for acute intracranial findings. -Patient drowsy but arousable on exam. Will administer Narcan as needed but currently no indication at this time -Monitor in ICU with continuous end-tidal CO2 and pulse ox monitoring Cardiac - Currently hemodynamically stable and normal sinus rhythm on monitor. EKG without ST elevation. QTc 459. Continuous monitor on telemetry Respiratory - Currently maintaining airway on room air. No current respiratory depression. No indication for intubation or mechanical ventilation at this time. No apparent history of pulmonary disease. Continuous monitoring on pulse ox GI - N.p.o. for now RENAL/LYTES - Creatinine within normal limits, no severe electrolyte abnormalities. Monitor routine BMP - Strict I's and O's ENDO - No history of diabetes or thyroid disease, ICU hyperglycemic protocol HEME - H&H stable, monitor routine CBCs ID - No indication for infectious process at this time LINES/IV ACCESS - Peripheral IVs DVT PROPHYLAXIS - SCDs Thank you for allowing us to participate in the care of this patient. Please refer to my attending physician's documentation for any further recommendations. (2) Cocaine intoxication: (3) Drug overdose: History of Present Illness Attending Physician: Chandler Bueno History of Present Illness Patient is a 41-year-old male without any significant past medical history that presented to the emergency department via EMS earlier today. EMS was responding to a cardiac arrest at a house for a 22-year-old male and found the patient in a separate room unresponsive and snoring. Patient was unarousable for EMS and they administered nasal Narcan which he began to wake up. Patient initially refused treatment but soon became somnolent again and was taken to the emergency department administered additional dose of Narcan. He received multiple doses of Narcan in the ED and remains somnolent and decision was made to transfer to ICU for closer monitoring. Patient's UDS positive for methamphetamine, marijuana, MDMA, cocaine. On arrival to the ICU patient is drowsy but arousable and oriented. He denies any use of narcotics and states he does not remember what happened. He denies intentions of self-harm. He denies headache, dizziness, pain, cough, shortness of breath, chest pain, palpitations, abdominal pain, nausea vomiting or diarrhea. Allergies Allergy/AdvReac Type Severity Reaction Status Date / Time No Known Allergies Allergy Unverified 01/27/22 10:05 Home Medications Medication Instructions Recorded Confirmed Type Unobtainable 01/27/22 01/27/22 History Patient History Social History Smoking Status: Current some day smoker Do You Dip or Chew Tobacco: No; Preferred Language: Macedonian Communication Ability: Effective Heavy Duty Custodian Required: No Beliefs That Will Affect Care: None Current Living Situation: Other Current Living Situation Comment: grandmother Other Information That Helps Us Care for You: No Feels Safe at Home: Yes Safety Concerns: Feels Safe At This Time Assistive Devices: None Review of Systems Review of Systems: All systems reviewed & are unremarkable except as noted in HPI & below Physical Exam Constitutional: WD/WN, vitals as above Eyes: PERRL, conjunctivae normal, anicteric sclerae ENMT: external ear and nose normal, oropharynx normal Neck: trachea midline, no thyromegaly Respiratory: normal respiratory effort, lungs clear to auscultation Cardiovascular: RRR, no murmur, no edema Gastrointestinal (Abdomen): normal bowel sounds, soft, nontender, no hepatosplenomegaly Musculoskeletal: no cyanosis or clubbing, extremities motor strength 5/5 Skin: no rashes, warm and dry Neurologic: PERRL, EOMI, accommodation nl, no face palsy, no dysarthria Psychiatric: A+Ox3, euthymic affect Results & Data Results & Data ([facility]) Vital Signs (Past 12 Hours) Vital Signs Temp Pulse Pulse Pulse Resp BP BP 01/27/22 19:30 37 C 85 14 154/92 H 01/27/22 20:00 88 13 01/27/22 20:00 137/86 01/27/22 19:42 154/92 H 01/27/22 19:42 86 16 01/27/22 19:40 01/27/22 19:00 74 16 01/27/22 19:00 143/80 H 01/27/22 18:30 78 10 L 01/27/22 18:30 124/87 01/27/22 18:00 81 18 01/27/22 18:00 144/95 H 01/27/22 17:30 70 16 01/27/22 17:30 152/88 H 01/27/22 17:00 77 12 01/27/22 17:00 147/95 H 01/27/22 16:30 68 12 01/27/22 16:30 156/93 H 01/27/22 16:00 66 14 01/27/22 16:00 141/94 H 01/27/22 15:30 72 16 01/27/22 15:30 152/91 H 01/27/22 15:00 77 14 01/27/22 15:00 153/99 H 01/27/22 15:44 01/27/22 14:00 73 26 H 148/91 H 01/27/22 13:03 01/27/22 13:03 73 26 H 138/87 01/27/22 11:45 70 11 L 01/27/22 11:45 138/90 01/27/22 11:30 66 10 L 01/27/22 11:30 147/99 H 01/27/22 11:15 144/86 H 01/27/22 11:15 73 20 144/86 H 01/27/22 11:00 73 10 L 01/27/22 11:00 145/87 H 01/27/22 10:45 74 12 01/27/22 10:45 139/87 01/27/22 10:30 77 13 01/27/22 10:30 141/90 H 01/27/22 10:28 139/95 01/27/22 10:17 72 12 01/27/22 10:15 73 16 01/27/22 10:15 138/86 01/27/22 10:00 72 14 01/27/22 09:45 76 15 01/27/22 09:45 149/95 H 01/27/22 09:43 75 14 01/27/22 09:42 140/91 01/27/22 10:50 73 12 139/87 01/27/22 10:30 75 14 141/90 H 01/27/22 10:09 01/27/22 09:59 35 C L 76 18 140/91 Pulse Ox O2 Del Method O2 Flow Rate 01/27/22 19:30 90 Room Air 01/27/22 20:00 96 01/27/22 20:00 01/27/22 19:42 01/27/22 19:42 92 01/27/22 19:40 93 01/27/22 19:00 97 01/27/22 19:00 01/27/22 18:30 97 01/27/22 18:30 01/27/22 18:00 01/27/22 18:00 01/27/22 17:30 01/27/22 17:30 01/27/22 17:00 96 01/27/22 17:00 01/27/22 16:30 97 01/27/22 16:30 01/27/22 16:00 01/27/22 16:00 01/27/22 15:30 95 01/27/22 15:30 01/27/22 15:00 88 L 01/27/22 15:00 01/27/22 15:44 84 L Oxymask 0 01/27/22 14:00 99 Nasal Cannula 5 01/27/22 13:03 99 Nasal Cannula 5 01/27/22 13:03 83 L Room Air 01/27/22 11:45 94 01/27/22 11:45 01/27/22 11:30 94 01/27/22 11:30 01/27/22 11:15 01/27/22 11:15 94 01/27/22 11:00 92 01/27/22 11:00 01/27/22 10:45 95 01/27/22 10:45 01/27/22 10:30 94 01/27/22 10:30 01/27/22 10:28 01/27/22 10:17 94 01/27/22 10:15 94 01/27/22 10:15 01/27/22 10:00 01/27/22 09:45 01/27/22 09:45 01/27/22 09:43 94 01/27/22 09:42 01/27/22 10:50 92 Room Air 01/27/22 10:30 94 Room Air 01/27/22 10:09 94 Room Air 01/27/22 09:59 94 Coding Level of Care Code 52894 Inpt Consult Level 3 Diagnoses Polysubstance overdose T50.901A Cocaine intoxication F14.929 Drug overdose T50.901A
--- NOTE | 2022-01-27 23:12 | Electrocardiogram Report ---
Test Reason : Blood Pressure : / mmHG Vent. Rate : 077 BPM Atrial Rate : 077 BPM P-R Int : 142 ms QRS Dur : 110 ms QT Int : 406 ms P-R-T Axes : 057 -15 056 degrees QTc Int : 459 ms Normal sinus rhythm Possible Left atrial enlargement Incomplete right bundle branch block Borderline ECG No previous ECGs available Confirmed by Anirudh Frances ([id number]) on 01/27/2022 11:12:30 PM Referred By: Confirmed By:Anirudh Frances
[2022-01-28 05:13] LABS: Basophils # (auto) 0.04 K/uL (0-0.2); Basophils % (auto) 0.3 %; Eosinophils # (auto) 0.21 K/uL (0-0.50); Eosinophils % (auto) 1.6 %; Hematocrit (blood only) 46.2 % (40.1-51.0); Hemoglobin 15.2 g/dl (14.0-18.0); Immature Granulocytes # (auto) 0.05 K/uL (0.00-0.02); Immature Granulocytes % (auto) 0.4 %; Lymphocytes # (auto) 2.48 K/uL (1.2-3.4); Mean Corpuscular Hemoglobin 30.5 pg (25.0-34.0); Mean Corpuscular Hgb Conc 32.9 g/dL (32.0-36.0); Mean Corpuscular Volume 92.6 fL (80.0-100.0); Mean Platelet Volume 10.3 fL (9.4-12.4); Monocytes # (auto) 1.71 K/uL (0.24-0.82); Monocytes % (auto) 13.1 %; Neutrophils # (auto) 8.58 K/uL (1.4-6.5); Neutrophils % (auto) 65.6 %; Platelet Count 202 K/uL (130-400); RDW Coefficient of Variation 13.2 % (11.5-14.5); RDW Standard Deviation 45.1 fL (36.4-46.3); Red Blood Count 4.99 M/uL (4.63-6.08); White Blood Count 13.07 K/ul (4.8-10.8)
[2022-01-28 05:42] LABS: BUN Creatinine Ratio 16.3 (10-20); Calcium 8.6 mg/dl (8.5-10.1); Creatinine Clr Calc Pharmacy 118.2 ml/min; Est GFR (African American) 118.5 ml/min; Est GFR (Non-African American) 102.2 ml/min; Magnesium 1.8 mg/dl (1.7-2.4); Phosphorus 2.9 mg/dl (2.5-4.9)
[2022-01-28] MEDS: SODIUM CHLORIDE 0.9% 1000ML 1,000 ML IV SCH (06:59)
[2022-01-28] MEDS ORDERED: VANCOMYCIN CONSULT ACTIVE PRN (08:18)
[2022-01-28] MEDS ORDERED: MAGNESIUM SULFATE / D5W 1 GM/100 ML BAG IV ONE (08:45)
[2022-01-28] MEDS ORDERED: VANCOMYCIN HCL 1,750 MG in SODIUM CHLORIDE 0.9% 500 ML IV ONE (08:45)
[2022-01-28 10:03] LABS: Appearance Urine Clear (Clear); Bacteria Urine Automated Negative (Negative); Bilirubin Urine Negative (Negative); Blood Urine Trace (Negative); Color Urine Yellow; Epithelial Cell Urine Auto 0-5 /lpf (0-5); Glucose Urine UA Negative (Negative); Ketones Urine 2+ (Negative); Leukocyte Esterase Urine Negative (Negative); Nitrite Urine Negative (Negative); Protein Urine Negative (Negative); RBC Urine Automated 0-4 /hpf (0-4); Specific Gravity Urine 1.018 (1.000-1.030); Urobilinogen Urine Negative (Negative)
--- NOTE | 2022-01-28 10:37 | Critical Care Progress Note ---
Date of Service January 28, 2022 Assessment & Plan (1) Polysubstance overdose: (2) Cocaine intoxication: (3) Drug overdose: (4) Sepsis: Plan [id number] male presents to the ICU following what appears to be an unintentional drug abuse. UDS positive for polysubstance. Patient responsive to Narcan but requiring multiple doses and admitted to ICU for close monitoring as he was previously experiencing respiratory depression. Neuro - Drug overdosepatient found responsive to Narcan. UDS positive for polysubstance. Required multiple doses of Narcan in the ED -CT head negative for acute intracranial findings. -Monitor in ICU with continuous end-tidal CO2 and pulse ox monitoring Cardiac - Currently hemodynamically stable and normal sinus rhythm on monitor. EKG without ST elevation. QTc 459. Continuous monitor on telemetry Respiratory - Currently maintaining airway on room air. No current respiratory depression. No indication for intubation or mechanical ventilation at this time. No appare nt history of pulmonary disease. Continuous monitoring on pulse ox GI - N.p.o. for now RENAL/LYTES - Creatinine within normal limits, no severe electrolyte abnormalities. Monitor routine BMP - Strict I's and O's ENDO - No history of diabetes or thyroid disease, ICU hyperglycemic protocol HEME - H&H stable, monitor routine CBCs ID - --Patient spiking fever Vancomycin 1 dose Follow-up blood culture and urine culture --Prophylaxis VTE: None GI: None Lines: Peripheral Diet: Regular when he wakes up Plan: In/out: +600 mL, urine output 1500 mL Hypomagnesemia being replaced Patient spiked fever of T-max 38. I will do blood cultures and give a dose of vancomycin Patient's UDS was interestingly negative for opioids. Will monitor how the patient is doing till noon. If his hemodynamically stable and is waking up then we will transfer him out of the ICU Case was discussed with Please note the above document was generated using voice recognition software. It may contain grammatical, syntax or spelling errors.Any formal questions or concerns about the content, text or information contained within the body of this dictation should be directly addressed to the provider for clarification. Admission and Anticipated Discharge Date Admission Date: January 27, 2022 Subjective Patient seen and examined at bedside. No acute distress. He did not require any more Narcan overnight after coming to the ICU His blood pressure systolic was in the 140s heart rate in the 80s. He did spike fever T-max of 38 He was somnolent when I entered the room. He is easily arousable and answers all the questions appropriately Did complain of mild headache, no nausea vomiting, no chest pain, no shortness of breath Review of Systems Review of Systems: All systems reviewed & are unremarkable except as noted in Subjective Physical Exam Physical Exam: Constitutional: No acute distress HEENT: EOMI, PERRLA Respiratory system: Good air entry bilaterally, no wheeze, no rhonchi, no crackles CVS: S1-S2 positive, no murmurs or gallops Abdomen: Soft, nontender, nondistended, positive bowel sounds x4 Extremities: +2 pulses bilaterally radialis/ dorsalis pedis, no cyanosis, no edema Neuro: Somnolent, oriented to self and place Psych: Unable to assess G/U: No Jimenez Skin: no rashes, warm and dry Tattoos all over the body Lymphatic: no cervical or axillary lymphadenopathy Results & Data Results & Data ([facility]) Vital Signs (Past 12 Hours) Vital Signs Temp Pulse Resp BP Pulse Ox O2 Del Method O2 Flow Rate 01/28/22 09:00 82 12 97 01/28/22 08:45 88 18 97 01/28/22 08:45 143/87 H 01/28/22 08:00 84 17 96 01/28/22 07:55 148/78 H 01/28/22 07:55 85 12 93 Nasal Cannula 2 01/28/22 07:00 82 13 98 01/28/22 08:00 38.0 C H 01/28/22 06:00 84 14 95 01/28/22 06:00 151/85 H 01/28/22 05:30 82 21 95 01/28/22 05:01 142/84 H 01/28/22 05:01 86 13 96 01/28/22 05:00 83 18 93 01/28/22 04:30 88 19 95 01/28/22 04:00 83 18 98 01/28/22 04:00 148/88 H 01/28/22 03:30 81 20 97 01/28/22 03:00 88 14 96 01/28/22 03:00 138/86 01/28/22 02:30 82 21 97 01/28/22 02:00 83 14 97 01/28/22 02:00 148/80 H 01/28/22 01:30 84 16 95 01/28/22 01:01 85 21 100 01/28/22 01:01 124/90 01/28/22 01:00 91 H 12 97 01/28/22 00:39 147/87 H 01/28/22 00:39 87 21 93 01/28/22 00:30 78 12 98 01/28/22 04:00 37.2 C 01/28/22 00:00 82 16 98 01/28/22 00:00 138/82 01/27/22 23:30 84 15 98 01/27/22 23:00 14 98 01/27/22 23:00 135/76 01/28/22 00:24 36.9 C 01/28/22 00:00 83 Laboratory Results 01/28/22 04:47 01/28/22 04:47 Coding Level of Care Code 62368 Subseq Hosp Care Lvl 3 Diagnoses Polysubstance overdose T50.901A Cocaine intoxication F14.929 Drug overdose T50.901A Sepsis A41.9
--- NOTE | 2022-01-28 10:56 | Pharmacy Report ---
Pharmacy PK ABX Note - Date of Service January 28, 2022 - Assessment and Plan Assessment 41 year old M receiving Vancomycin for empiric treatment of fevers. * PMHx significant for IV drug abuse. * Febrile to 38 C today. Started on Vancomycin empirically. Plan Vancomycin * Loading dose: 1750 mg IV x 1 * Maintenance dose: 1250 mg IV every 12 hours * Regimen is predicted to achieve target AUC/TANIA of 400-600 mg/L.hr * Random level ordered for: 01/30/22 Pharmacy will continue to follow and will adjust dose/frequency as necessary. Thank you. Pharmacy has transitioned to AUC monitoring for vancomycin. AUC/TANIA is the preferred PK/PD target and is associated with decreased risk of nephrotoxicity compared to traditional trough targets.
[2022-01-28] MEDS ORDERED: ACETAMINOPHEN 500 MG TAB PO PRN (11:13)
--- NOTE | 2022-01-28 13:22 | Hospitalist Progress Note ---
Date of Service January 28, 2022 Assessment & Plan (1) Acute encephalopathy: Plan: Most likely due to polysubstance abuse CT head did not show any acute pathology Urine positive for polysubstance Received narcan in the ED Still very drowsy but arousable (2) Polysubstance overdose: Plan: Patient admitted to ICU for drug overdose. Patient has been responding to IV narcan. UDS negative for opiates, however patient may hve taken synthetic narcotics. UDS: positive for amphetamines, marijuana, cocaine, ecstasy. Patient will be closely monitored as he reuires frequent IV narcan. (3) Fever: Plan: Unknown source, could be due to drugs or infection Cultures pending continue empiric Vancomycin Admission and Anticipated Discharge Date Admission Date: January 27, 2022 Subjective patient seen and examined, unable to arouse him for a conversation Review of Systems Review of Systems: unable to obtain Physical Exam Physical Exam: The patient is drowsy, lying in bed and in no acute distress. HEENT--PERRL, EOMI, mucous membranes and oropharynx mildly dry Neck--supple. No JVD. No bruits. Thyroid normal, trachea midline, no adenopathy. Heart--normal S1 and S2. No murmurs, rubs or gallops. Lungs--clear bilaterally, no respiratory distress, no accessory muscle use. Abdomen--normal bowel sounds and soft. Mild epigastric and left sided abdominal pain Extremities--no cyanosis or clubbing. No edema. Dermatologic--normal skin turgor, normal color, no abnormal lymph nodes, no rash. Neurologic--cranial nerves II through XII grossly intact. Rheumatologic--normal range of motion. Psychiatric--unable to assess Results & Data Results & Data ([facility]) Vital Signs (Past 12 Hours) Vital Signs Temp Pulse Resp BP BP Pulse Ox O2 Del Method 01/28/22 11:01 111/85 01/28/22 11:01 79 15 95 01/28/22 11:26 99.1 F 01/28/22 10:40 143/73 H 01/28/22 10:00 82 17 96 01/28/22 09:00 82 12 97 01/28/22 08:45 88 18 97 01/28/22 08:45 143/87 H 01/28/22 08:00 84 17 96 01/28/22 07:55 148/78 H 01/28/22 07:55 85 12 93 Nasal Cannula 01/28/22 07:00 82 13 98 01/28/22 08:00 100.4 F H 01/28/22 06:00 84 14 95 01/28/22 06:00 151/85 H 01/28/22 05:30 82 21 95 01/28/22 05:01 142/84 H 01/28/22 05:01 86 13 96 01/28/22 05:00 83 18 93 01/28/22 04:30 88 19 95 01/28/22 04:00 83 18 98 01/28/22 04:00 148/88 H 01/28/22 03:30 81 20 97 01/28/22 03:00 88 14 96 01/28/22 03:00 138/86 01/28/22 02:30 82 21 97 01/28/22 02:00 83 14 97 01/28/22 02:00 148/80 H 01/28/22 01:30 84 16 95 01/28/22 04:00 99.0 F O2 Flow Rate 01/28/22 11:01 01/28/22 11:01 01/28/22 11:26 01/28/22 10:40 01/28/22 10:00 01/28/22 09:00 01/28/22 08:45 01/28/22 08:45 01/28/22 08:00 01/28/22 07:55 01/28/22 07:55 2 01/28/22 07:00 01/28/22 08:00 01/28/22 06:00 01/28/22 06:00 01/28/22 05:30 01/28/22 05:01 01/28/22 05:01 01/28/22 05:00 01/28/22 04:30 01/28/22 04:00 01/28/22 04:00 01/28/22 03:30 01/28/22 03:00 01/28/22 03:00 01/28/22 02:30 01/28/22 02:00 01/28/22 02:00 01/28/22 01:30 01/28/22 04:00 PG Care Time/CCT Total # of Minutes Spent Total Time Spent with Patient: Total time spent is greater than 50% in coordination of care (as documented) at patient's floor/unit and/or counseling patient: Coding Level of Care Code 09396 Subseq Hosp Care Lvl 2 Diagnoses Acute encephalopathy G93.40 Polysubstance overdose T50.901A Fever R50.9 Time Spent (min) 35
[2022-01-28] MEDS: VANCOMYCIN HCL 1,250 MG in SODIUM CHLORIDE 0.9% 250 ML IV SCH (19:59)
[2022-01-29 06:10] LABS: Basophils # (auto) 0.02 K/uL (0-0.2); Basophils % (auto) 0.2 %; Eosinophils # (auto) 0.15 K/uL (0-0.50); Eosinophils % (auto) 1.1 %; Hematocrit (blood only) 48.5 % (40.1-51.0); Hemoglobin 16.4 g/dl (14.0-18.0); Immature Granulocytes # (auto) 0.06 K/uL (0.00-0.02); Immature Granulocytes % (auto) 0.5 %; Lymphocytes # (auto) 1.87 K/uL (1.2-3.4); Lymphocytes % (auto) 14.1 %; Mean Corpuscular Hemoglobin 30.3 pg (25.0-34.0); Mean Corpuscular Hgb Conc 33.8 g/dL (32.0-36.0); Mean Corpuscular Volume 89.5 fL (80.0-100.0); Mean Platelet Volume 10.8 fL (9.4-12.4); Monocytes # (auto) 1.45 K/uL (0.24-0.82); Monocytes % (auto) 10.9 %; Neutrophils # (auto) 9.71 K/uL (1.4-6.5); Neutrophils % (auto) 73.2 %; Platelet Count 203 K/uL (130-400); RDW Coefficient of Variation 12.7 % (11.5-14.5); RDW Standard Deviation 41.8 fL (36.4-46.3); Red Blood Count 5.42 M/uL (4.63-6.08); White Blood Count 13.26 K/ul (4.8-10.8)
[2022-01-29 06:43] LABS: BUN Creatinine Ratio 13.5 (10-20); Calcium 9.1 mg/dl (8.5-10.1); Creatinine Clr Calc Pharmacy 122.2 ml/min; Est GFR (African American) 122.2 ml/min; Est GFR (Non-African American) 105.5 ml/min; Magnesium 1.9 mg/dl (1.7-2.4); Phosphorus 2.3 mg/dl (2.5-4.9)
[2022-01-29] MEDS: VANCOMYCIN HCL 1,250 MG in SODIUM CHLORIDE 0.9% 250 ML IV SCH ×2 (08:57→20:31)
[2022-01-29] MEDS ORDERED: VANCOMYCIN CONSULT ACTIVE PRN (10:52)
--- NOTE | 2022-01-29 13:01 | Hospitalist Progress Note ---
Date of Service January 29, 2022 Assessment & Plan (1) Acute encephalopathy: Plan: Now resolved. Now awake, alert, oriented Was Most likely due to polysubstance abuse CT head did not show any acute pathology Urine positive for polysubstance (2) Polysubstance overdose: Plan: Patient initially admitted to ICU for drug overdose, now on the floor UDS: positive for amphetamines, marijuana, cocaine, ecstasy. (3) Fever: Plan: Unknown source, could be due to drugs or infection No fevers in the past 48 hrs Cultures pending continue empiric Vancomycin till tomorrow morning Plan D/C home, patient says he lives with girlfriend, but her phone number is in his phone, which he has lost. Doesnt want to go to his dads place because his daughter already lives there Admission and Anticipated Discharge Date Admission Date: January 27, 2022 Subjective patient seen and examined, now awake and alert and oriented Review of Systems Review of Systems: All systems reviewed are negative, apart from the ones contained in the history. Physical Exam Physical Exam: The patient is awake, alert, oriented HEENT--PERRL, EOMI, mucous membranes and oropharynx mildly dry Neck--supple. No JVD. No bruits. Thyroid normal, trachea midline, no adenopathy. Heart--normal S1 and S2. No murmurs, rubs or gallops. Lungs--clear bilaterally, no respiratory distress, no accessory muscle use. Abdomen--normal bowel sounds and soft. Mild epigastric and left sided abdominal pain Extremities--no cyanosis or clubbing. No edema. Dermatologic--normal skin turgor, normal color, no abnormal lymph nodes, no rash. Neurologic--cranial nerves II through XII grossly intact. Rheumatologic--normal range of motion. Psychiatric--unable to assess Results & Data Results & Data ([facility]) Vital Signs (Past 12 Hours) Vital Signs Temp Pulse Pulse Resp BP BP Pulse Ox 01/29/22 12:00 98.2 F 72 18 148/93 H 97 01/29/22 08:00 98.6 F 87 24 133/88 97 01/29/22 06:00 96 H 24 92 01/29/22 06:00 140/86 01/29/22 05:00 99 H 21 94 01/29/22 04:00 78 21 91 01/29/22 04:00 140/87 01/29/22 03:00 78 18 93 01/29/22 03:00 130/86 01/29/22 02:00 72 21 94 01/29/22 02:00 141/82 H 01/29/22 03:30 98.1 F 01/29/22 01:00 71 17 125/83 91 PG Care Time/CCT Total # of Minutes Spent Total Time Spent with Patient: Total time spent is greater than 50% in coordination of care (as documented) at patient's floor/unit and/or counseling patient: Coding Level of Care Code 31242 Subseq Hosp Care Lvl 2 Diagnoses Acute encephalopathy G93.40 Polysubstance overdose T50.901A Fever R50.9 Time Spent (min) 35
[2022-01-30 06:29] LABS: Basophils # (auto) 0.06 K/uL (0-0.2); Basophils % (auto) 0.6 %; Eosinophils # (auto) 0.25 K/uL (0-0.50); Eosinophils % (auto) 2.5 %; Hemoglobin 16.9 g/dl (14.0-18.0); Immature Granulocytes # (auto) 0.03 K/uL (0.00-0.02); Immature Granulocytes % (auto) 0.3 %; Lymphocytes # (auto) 2.17 K/uL (1.2-3.4); Lymphocytes % (auto) 21.5 %; Mean Corpuscular Hemoglobin 30.5 pg (25.0-34.0); Mean Corpuscular Hgb Conc 34.5 g/dL (32.0-36.0); Mean Corpuscular Volume 88.4 fL (80.0-100.0); Mean Platelet Volume 10.3 fL (9.4-12.4); Monocytes # (auto) 1.31 K/uL (0.24-0.82); Neutrophils # (auto) 6.26 K/uL (1.4-6.5); Neutrophils % (auto) 62.1 %; Platelet Count 239 K/uL (130-400); RDW Coefficient of Variation 12.7 % (11.5-14.5); RDW Standard Deviation 41.3 fL (36.4-46.3); Red Blood Count 5.54 M/uL (4.63-6.08); White Blood Count 10.08 K/ul (4.8-10.8)
[2022-01-30 07:01] LABS: Calcium 9.2 mg/dl (8.5-10.1); Creatinine Clr Calc Pharmacy 108.8 ml/min; Est GFR (African American) 107.1 ml/min; Est GFR (Non-African American) 92.4 ml/min; Phosphorus 2.7 mg/dl (2.5-4.9); Potassium 4.6 mmol/L (3.5-5.1)
[2022-01-30] MEDS: VANCOMYCIN HCL 1,250 MG in SODIUM CHLORIDE 0.9% 250 ML IV SCH (09:11)
--- NOTE | 2022-01-30 11:22 | Discharge Summary ---
Date of Service January 30, 2022 Admission HPI Per Admitting Provider 41 yo male comes in with what appears to be accidental overdose. Patient is unable to provide medical history. history is obtained from chart review and verbal discussion with ER provider. Patient was brought to the hospital by EMS. He was sedated. EMS was called to the scene as there was a 22 yo in cardiac arrest. EMS staff found this 41 yo male unresponsive and brought him to the ER. Prior to arrival, he wa treated with IV narcan and woke up. During interrogation he was found to be somnolent. Principal Diagnosis drug overdose Discharge Exam The patient is awake, alert, oriented HEENT--PERRL, EOMI, mucous membranes and oropharynx mildly dry Neck--supple. No JVD. No bruits. Thyroid normal, trachea midline, no adenopathy. Heart--normal S1 and S2. No murmurs, rubs or gallops. Lungs--clear bilaterally, no respiratory distress, no accessory muscle use. Abdomen--normal bowel sounds and soft. Mild epigastric and left sided abdominal pain Extremities--no cyanosis or clubbing. No edema. Dermatologic--normal skin turgor, normal color, no abnormal lymph nodes, no rash. Neurologic--cranial nerves II through XII grossly intact. Rheumatologic--normal range of motion. Psychiatric--unable to assess Discharge Data Allergies Allergy/AdvReac Type Severity Reaction Status Date / Time No Known Allergies Allergy Unverified 01/27/22 10:05 Consultations 01/27/22 16:27 ED Decision to Admit Stat 01/27/22 18:00 Consult [employer] Specialist Routine Ordered Studies 01/27/22 09:56 CT head/brain wo con Stat Hospital Course (1) Acute encephalopathy: Now resolved. Now awake, alert, oriented Was Most likely due to polysubstance abuse CT head did not show any acute pathology Urine positive for polysubstance (2) Polysubstance overdose: Patient initially admitted to ICU for drug overdose, now on the floor UDS: positive for amphetamines, marijuana, cocaine, ecstasy. (3) Fever: Unknown source, could be due to drugs or infection No fevers in the past 48 hrs Cultures pending continue empiric Vancomycin till tomorrow morning Plan D/C home, patient says he lives with girlfriend, but her phone number is in his phone, which he has lost. Doesnt want to go to his dads place because his daughter already lives there Total Time Total Time Spent Total Time Spent (In Minutes): 35 Discharge Plan Discharge Items Patient Disposition: Home - Self-Care Reason For Visit: ACCIDENTAL OVERDOSE Discharge Diagnosis: drug overdose Activity: Resume your previous activity Non-emergency contact: Primary Care Provider Call non-emergency contact if: you have any medication questions Follow-up/Referrals: PCP,NO [Primary Care Provider] - Diet: Regular Addtl Attending Provider Instructions: please make appointment to follow up with your regular PCP Pending Studies at Discharge: No Stand-Alone Forms: My [employer], Smoking Cessation Medications and DC Order Prescriptions: No Action Unobtainable Discharge Orders: Discharge Order (Routine); Ordered 01/30/22 Ordered By: Pio Montgomery Admission Data Admit Date/Time: 01/27/22 16:50 Attending Provider: Pio Montgomery Admit Provider: Chandler Bueno Primary Care Provider: PCP,NO Other Providers: Chandler Bueno [place] Other Interventions: Discharge Summary Assessment (RN) Last Done: 01/30/22 10:49 Coding Level of Care Code D/C DAY MANAGEMENT >30 MINS Diagnoses Acute encephalopathy G93.40 Polysubstance overdose T50.901A Fever R50.9
[2022-02-02 15:51] LABS: Amphetamine Urine, Confirm 9850 ng/mL (<250); Cocaine, Urine >15000 ng/mL (<100); MDA negative; MDEA negative; MDMA (Ecstasy) Urine, Confirm negative; Marijuana Quant, GCMS Urine 31 ng/mL (<5); Methamphetamine, Ur Confirm >15000 ng/mL (<250)
== END 2022-01-30 11:33 | disposition home or self-care (01) | DRG 917 ==
LOC: ED 09:38 → 1E 16:50 → SUATTDRO 16:50 → 1E 19:00 → 2E 01-29 07:42